=== PATIENT | male | born 1960 | race Hispanic/Latino ===

== ENCOUNTER 2021-10-25 01:19 | Inpatient (IN) | payer SELFPAY ==
[2021-10-25] MEDS ORDERED: chlordiazePOXIDE HCl 25 MG CAP PO SCH (02:15)
[2021-10-25] MEDS ORDERED: Potassium Chloride 20 MEQ TAB ONE (02:56)
[2021-10-25] MEDS ORDERED: Magnesium 2 GM/50 ML BAG (IN WATER) ONE (02:56)
[2021-10-25] MEDS ORDERED: Acetaminophen 325 MG TAB PO PRN (04:09)
[2021-10-25] MEDS ORDERED: Ondansetron PF 4 MG/2 ML Vial IVP PRN (04:09)
[2021-10-25 05:12] VITALS: BMI 25.4
[2021-10-25] MEDS ORDERED: Electrolyte Replacement Protocol 1 EACH FS SCH (06:30)
[2021-10-25] MEDS ORDERED: Lorazepam 2 MG/ML VIAL IM PRN (06:30)
[2021-10-25] MEDS ORDERED: Lorazepam 1 MG TAB PO PRN (06:30)
[2021-10-25 06:57] LABS: ALT (SGPT) 35 U/L (8-55); AST (SGOT) 53 U/L (5-34); Albumin 3.5 g/dL (3.5-5.0); Alkaline Phosphatase 82 U/L (40-110); Anion Gap 10 mmol/L (10-20); BUN (Urea Nitrogen) 6 mg/dL (8.4-25.7); Bilirubin, Total 4.2 mg/dL (0.2-1.2); Calc. Creatinine Clearance 132 mL/min (70-130); Calcium 8.3 mg/dL (7.8-10.44); Carbon Dioxide 26 mmol/L (22-29); Chloride 104 mmol/L (98-107); Estimated GFR 115; Globulin 3.3 g/dL (2.4-3.5); Glucose 99 mg/dL (70-105); Magnesium 2.2 mg/dL (1.6-2.6); Protein, Total 6.8 g/dL (6.0-8.3); Sodium 137 mmol/L (136-145)
[2021-10-25 07:08] LABS: #Eosinphils 0.1 thou/uL (0.0-0.7); #Lymphocytes 1.3 thou/uL (1.20-3.40); #Monocytes 0.4 thou/uL (0.11-0.59); #Neutrophils 1.1 thou/uL (1.40-6.50); %Basophils 0.8 % (0.0-1.0); %Eosinophils 2.8 % (0.0-10.0); %Lymphocytes 44.4 % (21.0-51.0); %Monocytes 14.2 % (0.0-10.0); %Neutrophils 37.8 % (42.0-75.0); Mean Corpuscular HGB CONC 34.1 g/dL (32.0-36.0); Mean Corpuscular Hemoglobin 32.6 pg (27.0-31.0); Mean Corpuscular Volume 95.6 fL (78.0-98.0); Mean Platelet Volume 9.1 fL (7.4-10.4); Platelet Count 61 thou/uL (130-400); Platelet Morphology Comment Appears Decreased; RBC Morphology Normal; White Blood Cell (WBC) Count 2.8 thou/uL (4.8-10.8)
[2021-10-25 07:12] LABS: Phosphorus 3.3 mg/dL (2.3-4.7)
[2021-10-25] MEDS ORDERED: Potassium Chloride 20 MEQ TAB PO SCH (08:00)
[2021-10-25] MEDS: Folic Acid 1 MG TAB PO SCH (09:22)
[2021-10-25] MEDS: chlordiazePOXIDE HCl 25 MG CAP PO SCH ×3 (09:22→21:07)
[2021-10-25] MEDS: Thiamine HCl 200 MG/2 ML VIAL SLOW IVP SCH (09:23)
[2021-10-25] MEDS: Multivit, Therapeutic 1 TAB PO SCH (09:23)
[2021-10-26] MEDS: Thiamine HCl 200 MG/2 ML VIAL SLOW IVP SCH (05:59)
[2021-10-26] MEDS ORDERED: Lorazepam 1 MG TAB PO PRN (06:30)
[2021-10-26] MEDS: chlordiazePOXIDE HCl 25 MG CAP PO SCH ×3 (07:31→20:48)
[2021-10-26] MEDS: Multivit, Therapeutic 1 TAB PO SCH (07:31)
[2021-10-26] MEDS: Folic Acid 1 MG TAB PO SCH (07:31)
[2021-10-26 07:47] LABS: #Basophils 0.1 thou/uL (0.0-0.2); #Eosinphils 0.1 thou/uL (0.0-0.7); #Lymphocytes 1.4 thou/uL (1.20-3.40); #Monocytes 0.3 thou/uL (0.11-0.59); #Neutrophils 1.2 thou/uL (1.40-6.50); %Basophils 1.7 % (0.0-1.0); %Eosinophils 2.4 % (0.0-10.0); %Lymphocytes 46.1 % (21.0-51.0); %Monocytes 10.2 % (0.0-10.0); %Neutrophils 39.7 % (42.0-75.0); Hemoglobin 14.1 g/dL (14.0-18.0); Mean Corpuscular HGB CONC 33.6 g/dL (32.0-36.0); Mean Corpuscular Hemoglobin 32.6 pg (27.0-31.0); Mean Corpuscular Volume 97.1 fL (78.0-98.0); Mean Platelet Volume 9.2 fL (7.4-10.4); Platelet Count 69 thou/uL (130-400); RBC Distribution Width 12.1 % (11.5-14.5); Red Blood Cell (RBC) Count 4.33 mill/uL (4.70-6.10); White Blood Cell (WBC) Count 3.1 thou/uL (4.8-10.8)
[2021-10-26 08:04] LABS: ALT (SGPT) 36 U/L (8-55); AST (SGOT) 52 U/L (5-34); Albumin 3.5 g/dL (3.5-5.0); Alkaline Phosphatase 92 U/L (40-110); Anion Gap 13 mmol/L (10-20); BUN (Urea Nitrogen) 10 mg/dL (8.4-25.7); Calc. Creatinine Clearance 109 mL/min (70-130); Calcium 8.8 mg/dL (7.8-10.44); Carbon Dioxide 22 mmol/L (22-29); Chloride 109 mmol/L (98-107); Estimated GFR 108; Globulin 3.3 g/dL (2.4-3.5); Glucose 151 mg/dL (70-105); Magnesium 1.7 mg/dL (1.6-2.6); Potassium 3.5 mmol/L (3.5-5.1); Protein, Total 6.8 g/dL (6.0-8.3); Sodium 140 mmol/L (136-145)
[2021-10-26] MEDS ORDERED: Potassium Chloride 20 MEQ TAB PO SCH (11:45)
[2021-10-26] MEDS ORDERED: Magnesium 2 GM/50 ML(in water) 2 GM in Premix Bag 1 BAG IVPB SCH (11:45)
[2021-10-27 03:44] LABS: #Lymphocytes 0.7 thou/uL (1.20-3.40); #Monocytes 0.3 thou/uL (0.11-0.59); #Neutrophils 1.4 thou/uL (1.40-6.50); %Basophils 0.7 % (0.0-1.0); %Lymphocytes 28.1 % (21.0-51.0); %Neutrophils 59.2 % (42.0-75.0); Hemoglobin 14.2 g/dL (14.0-18.0); Mean Corpuscular HGB CONC 34.1 g/dL (32.0-36.0); Mean Corpuscular Hemoglobin 33.5 pg (27.0-31.0); Mean Platelet Volume 9.3 fL (7.4-10.4); Platelet Count 55 thou/uL (130-400); RBC Distribution Width 12.2 % (11.5-14.5); Red Blood Cell (RBC) Count 4.26 mill/uL (4.70-6.10); White Blood Cell (WBC) Count 2.4 thou/uL (4.8-10.8)
[2021-10-27 03:57] LABS: ALT (SGPT) 32 U/L (8-55); AST (SGOT) 45 U/L (5-34); Albumin 3.5 g/dL (3.5-5.0); Alkaline Phosphatase 104 U/L (40-110); Anion Gap 13 mmol/L (10-20); BUN (Urea Nitrogen) 8 mg/dL (8.4-25.7); Bilirubin, Total 2.5 mg/dL (0.2-1.2); Calc. Creatinine Clearance 111 mL/min (70-130); Calcium 8.5 mg/dL (7.8-10.44); Carbon Dioxide 20 mmol/L (22-29); Chloride 109 mmol/L (98-107); Estimated GFR 109; Globulin 3.2 g/dL (2.4-3.5); Glucose 97 mg/dL (70-105); Magnesium 1.6 mg/dL (1.6-2.6); Potassium 3.7 mmol/L (3.5-5.1); Protein, Total 6.7 g/dL (6.0-8.3); Sodium 138 mmol/L (136-145)
[2021-10-27] MEDS: Thiamine HCl 200 MG/2 ML VIAL SLOW IVP SCH (05:42)
[2021-10-27] MEDS ORDERED: Lorazepam 1 MG TAB PO PRN (06:30)
[2021-10-27] MEDS: chlordiazePOXIDE HCl 25 MG CAP PO SCH ×2 (07:28→15:22)
[2021-10-27] MEDS: Folic Acid 1 MG TAB PO SCH (07:28)
[2021-10-27] MEDS: Multivit, Therapeutic 1 TAB PO SCH (07:28)
[2021-10-27] MEDS ORDERED: Magnesium 2 GM/50 ML(in water) 2 GM in Premix Bag 1 BAG IVPB SCH (08:00)
[2021-10-27 12:08] VITALS: BP 161/94
[2021-10-27] MEDS ORDERED: Amlodipine 5 MG TAB PO SCH (13:15)
[2021-10-27 15:34] VITALS: TEMP 98.7
[2021-10-28] MEDS ORDERED: Thiamine 100 MG TAB PO SCH (06:30)
[2021-10-28] MEDS ORDERED: Lorazepam 0.5 MG TAB PO PRN (06:30)
[2021-10-28] MEDS ORDERED: Amlodipine 5 MG TAB PO SCH (09:00)
== END 2021-10-27 17:18 | disposition home or self-care (01) | DRG 897 ==
LOC: ERS 01:19 → IMCU/EMU 02:24
PROVIDERS: ADMIT Internal Medicine; ATTEND Internal Medicine
PROC: HZ2ZZZZ Detoxification Services for Substance Abuse Treatment (ICD-10-PCS; principal; 2021-10-25)
DX: F10.139 Alcohol abuse with withdrawal, unspecified (principal); D61.818 Other pancytopenia; R56.9 Unspecified convulsions; I10 Essential (primary) hypertension; E87.6 Hypokalemia; R94.5 Abnormal results of liver function studies; Z98.890 Other specified postprocedural states; Z91.14 Patient's other noncompliance with medication regimen
CPT/HCPCS: 36415; 70553; 80053; 82607; 83735; 84100; 85025; 95706; 95819; 95957; 96365; J3411; J3475